=== PATIENT | male | born 1990 ===

== ENCOUNTER 2018-07-23 02:08 | Emergency (ER) | payer SELFPAY ==
[2018-07-23 02:43] VITALS: BP 143/94; RESP 117; TEMP 98.2; O2SAT 99
[2018-07-23] MEDS ORDERED: Tdap Vaccine 0.5 ml Vial (10-64 yrs) IM ONE ×2 (03:15→03:47)
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
== END 2018-07-23 04:30 | disposition left against medical advice (07) ==
LOC: C.ER 02:08
DX: S01.112A Laceration without foreign body of left eyelid and periocular area, initial encounter (principal); S51.812A Laceration without foreign body of left forearm, initial encounter; X99.0XXA Assault by sharp glass, initial encounter; Y92.9 Unspecified place or not applicable